=== PATIENT | male | born 1955 | race Caucasian/White ===

== ENCOUNTER → 2024-08-28 08:12 | Outpatient (REF) | payer MEDICARE, OTHER, SELFPAY | LOC: RCS 08:12 | PROVIDERS: ATTENDING PHYSICIAN Internal Medicine; FAMILY PHYSICIAN Family Medicine | DX: I25.10 Atherosclerotic heart disease of native coronary artery without angina pectoris (principal); Z95.0 Presence of cardiac pacemaker; I10 Essential (primary) hypertension | CPT/HCPCS: 93306 ==